=== PATIENT | male | born 1950 | race Caucasian/White ===

== ENCOUNTER 2021-08-12 11:26 | Emergency (ER) | payer MEDICARE, OTHER, SELFPAY ==
--- NOTE | ~2021-08-12 | XR_ITS ---
EXAMINATION: XR ANKLE, RIGHT CLINICAL INFORMATION: Swelling right ankle. COMPARISON: None TECHNIQUE: AP, lateral, and mortise views of the right ankle. FINDINGS: There is a moderate medial medial malleolar and mild lateral malleolar soft tissue swelling. The ankle mortise and subtalar joints are normal. No visible acute fracture or dislocation. There are small calcaneal heel and retrocalcaneal enthesophytes. XR/XR ankle RT 2V IMPRESSION: Small retrocalcaneal and calcaneal heel enthesophytes. No acute fracture or dislocation. There is bimalleolar soft tissue swelling
[2021-08-12 11:46] VITALS: BP 161/76; PULSE 52; RESP 16; TEMP 35.9; O2SAT 97; BMI 33.0
--- NOTE | 2021-08-12 12:23 | ED.EXTPRO ---
HPI - Extremity Problem General Chief complaint: Extremity Problem Stated complaint: r foot ankle pain Time Seen by Provider: 08/12/21 11:59 Source: patient Mode of arrival: ambulatory Limitations: no limitations History of Present Illness HPI Narrative: 71-year-old male with a history of coronary disease, hypertension, hyperlipidemia on aspirin 81 mg and Plavix 75 mg here with reports of 2 weeks of right ankle pain and swelling. Patient denies any injury or trauma. Patient tells me the pain is felt primarily on the medial aspect of the ankle and it is more painful at night time when he is trying to sleep. He feels like in the morning when he wakes up the ankle is stiff and then throughout the day it does get better. He reports there is some swelling associated with the pain. No warmth or redness or fevers or chills. No recent travel. No sick contacts. No history of blood clots or family history of same. He has been compliant with his aspirin and his Plavix. Related Data Previous Rx's Medication Instructions Recorded prednisone 20 mg tablet 40 mg PO DAILY #10 tab 08/12/21 Allergies Allergy/AdvReac Type Severity Reaction Status Date / Time No Known Allergies Allergy Verified 08/12/21 11:45 Review of Systems Review of Systems: Yes all other systems are reviewed and are negative Constitutional: Constitutional: Reports no additional constitutional complaints, Denies body ache(s), Denies chills, Denies fever(s), Denies headache(s) and Denies weakness Eyes: Eyes: Reports no additional eye complaints and Denies change in vision ENT: Reports system reviewed and no additional complaints, except as documented, Denies dizziness, Denies headache(s), Denies nasal congestion, Denies nasal discharge and Denies neck pain Cardiovascular: Cardiovascular: Reports no additional cardiovascular complaints, Denies chest pain, Denies leg edema and Denies dyspnea Respiratory: Respiratory: Reports no additional respiratory complaints, Denies cough and Denies dyspnea Gastrointestinal: Gastrointestinal: Reports no additional gastrointestinal complaints, Denies abdominal pain, Denies diarrhea, Denies nausea and Denies vomiting Genitourinary: Genitourinary: Denies urinary incontinence Musculoskeletal: Musculoskeletal: Reports no additional musculoskeletal complaints, Denies back pain, Reports arthralgias, Reports joint swelling, Denies neck pain, Denies numbness and Denies tingling Integumentary/Breasts: Skin/Breast: Reports system reviewed and no additional complaints, except as docu and Denies rash Neurologic: Reports system reviewed and no additional complaints, except as documented, Denies Abnormal speech present, Denies dizziness, Denies headache(s), Denies numbness, Denies tingling and Denies weakness PMFSH Past Medical History Attestation statement: The following information was validated with the patient. Source: old records reviewed and nursing notes reviewed Medical History HTN (hypertension) Hyperlipidemia Myocardial infarction Social History Social History Advance Directives: No Advance Directives Information Provided: Yes Physical Exam Vital Signs: Vital Signs: Last Vital Signs Temp 97.1 F 08/12/21 14:05 Pulse 50 08/12/21 14:05 Resp 16 08/12/21 14:05 BP 163/81 H 08/12/21 14:05 Pulse Ox 96 08/12/21 14:05 BMI result Body Mass Index 33.0 Const: General: cooperative, healthy appearing, comfortable and no acute distress Orientation/consciousness: patient oriented x3 Limitations: no limitations HEENT: Head: Yes normal to inspection Ears: hearing grossly normal bilaterally General nose exam: Normal external nose present Face and sinus: Yes normal facial exam Mouth: Normal oral and palatal mucosa present Throat: Yes posterior oropharynx normal Eyes: General: appearance normal, both eyes and all related structures Pupils: Equal, round and reactive pupils present Neck: Neck: Yes normal visual inspection Chest: Chest palpation & inspection: normal inspection of the chest Resp: Effort & Inspection: normal respiratory effort Auscultation: clear to auscultation bilaterally Cardio: Rate: regular rate Rhythm: regular rhythm Peripheral pulses: Peripheral pulses 2+ throughout GI: Inspection: Yes normal to inspection Palpation (GI): Soft to palpation and nontender Auscultation: normal bowel sounds Back/Spine/Pelvis: Thoracic/Lumbar Spine: thoracic and lumbar spine normal to inspection Skin: General skin exam: no rashes or lesions noted Neuro: General: patient oriented x3, no focal motor deficits and normal sensation to monofilament Cranial nerves: Yes Equal, round and reactive pupils present Cognition (Neuro): normal cognition Speech: No Abnormal speech present Gait exam (Neuro): Normal gait present Motor exam (neuro): 5/5 motor strength present throughout Extrem: Other: To the medial aspect there is some skin discoloration there is swelling noted around the ankle circumferentially with some tenderness with range of motion. Neurovascularly intact distally. Palpable pulses. No warmth or redness. No calf pain or swelling. Foot is normal. General: Yes normal to inspection Course Course Course Narrative: 71-year-old male here with atraumatic right ankle pain and swelling for the last 2 weeks. Will check x-rays, lab 1415-Labs show mildly increased inflammatory markers. Uric acid is negative. However an acute gout flare uric acid may be normal. X-ray show some arthritic changes. I discussed with the patient is may be a gout flare. He also has underlying arthritis which could be contributing to his pain and swelling. Less likely DVT with no calf pain or swelling or risk factors. Less likely cellulitis with no warmth or redness. Will treat with course of prednisone. Reviewed worrisome signs and symptoms of when to return to the emergency department. Comfortable discharge home. MDM - Extremity (Nontraumatic) Medical Records Attestation: I reviewed the patient's medical records. Lab Data Attestation: I reviewed the patient's lab results. Result diagrams: 08/12/21 12:29 08/12/21 12:29 Labs: Lab Results 08/12/21 08/12/21 08/12/21 Range/Units 12:29 12:29 12:29 WBC 6.3 (4.8-10.8) X10*3/uL RBC 4.61 (4.60-5.80) X10*6/uL Hgb 14.7 (14.0-18.0) g/dl Hct 44.7 (42.0-52.0) % MCV 97.0 (80.0-98.0) fL MCH 31.9 (27.0-33.0) pg MCHC 32.9 (31.0-36.0) g/dl RDW 12.9 (11.0-16.0) % Plt Count 175 (160-400) X10*3/uL MPV 8.8 L (9.4-12.4) fL Immature Gran % (Auto) 0.3 (0.0-0.4) % Neut % (Auto) 58.8 (45-73) % Lymph % (Auto) 24.5 (20-40) % [place] % (Auto) 12.0 H (2-11) % Eos % (Auto) 3.5 (0-4) % Baso % (Auto) 0.9 (0-2) % Lymph # (Auto) 1.6 (1.2-4.9) X10*3/uL [place] # (Auto) 0.8 (0.1-1.2) X10*3/uL Eos # (Auto) 0.2 (0.0-0.4) X10*3/uL Baso # (Auto) 0.1 (0.0-0.2) X10*3/uL Abs Immat Gran (auto) 0.02 (0.00-0.03) X10*3/uL Absolute Neuts (auto) 3.7 (2.0-8.3) x10*3/uL Absolute Nucleated RBC 0.000 (0.0-0.012) X10*3/uL Nucleated RBC % (auto) 0.0 (0.0-0.2) /100WBC ESR 5 (0-15) MM/HR Sodium 140 (135-145) mmol/L Potassium 4.7 (3.3-5.1) mmol/L Chloride 105 (96-108) mmol/L Carbon Dioxide 26 (22-29) mmol/L Anion Gap 14 (12-20) BUN 15 (9-16) mg/dL Creatinine 0.93 (0.5-1.4) mg/dL Estim Creat Clear Calc 86.8 Estimated GFR > 60 Random Glucose 96 (60-115) mg/dL Uric Acid 4.7 (3.4-7.0) mg/dL Calcium 9.6 (8.4-10.2) mg/dL C-Reactive Protein 0.69 H (< or = 0.50) mg/dL Imaging Data ankle xray: Attestation: I personally reviewed and interpreted this imaging study as follows: Radiologist's impression: [address] [address] XRay Report Signed Patient: Robert Gastelum MR#: [id number] : 1950 Acct:[id number] Age/Sex: 71 / M ADM Date: 08/12/21 Loc: [facility].ED Attending Dr: Ordering Physician: Jorge Wilkins MD Date of Service: 08/12/21 Procedure(s): XR ankle RT 2V Accession Number(s): [id number] cc: Jorge Wilkins MD~ EXAMINATION: XR ANKLE, RIGHT CLINICAL INFORMATION: Swelling right ankle.? COMPARISON: None? TECHNIQUE: AP, lateral, and mortise views of the right ankle. FINDINGS: There is a moderate medial medial malleolar and mild lateral malleolar soft tissue swelling. The ankle mortise and subtalar joints are normal. No visible acute fracture or dislocation. There are small calcaneal heel and retrocalcaneal enthesophytes.? XR/XR ankle RT 2V IMPRESSION: Small retrocalcaneal and calcaneal heel enthesophytes. ? No acute fracture or dislocation. ? There is bimalleolar soft tissue swelling Discharge Plan Discharge Clinical Impression: Gout Patient Disposition: Home, Self-Care Instructions: Low Purine Diet (ED), Gout (ED), Swollen Ankle Joint (ED) Additional Instructions: Your x-ray shows some arthritic changes Apply heat or ice Gentle stretching Follow-up with primary care in 1 week for persistent symptoms Prescriptions: New prednisone 20 mg tablet 40 mg PO DAILY Qty: 10 0RF Referrals: Cinda Cho MD [Primary Care Provider] - 1 week (for persistent symptoms. )
[2021-08-12 12:38] LABS: MANUAL DIFF FLAG NO
[2021-08-12 12:43] LABS: Basophils Absolute Auto 0.1 X10*3/uL (0.0-0.2); Basophils Percent Auto 0.9 % (0-2); Eosinophils Absolute Auto 0.2 X10*3/uL (0.0-0.4); Eosinophils Percent Auto 3.5 % (0-4); Hematocrit 44.7 % (42.0-52.0); Hemoglobin 14.7 g/dl (14.0-18.0); Imm Gran Abs Auto 0.02 X10*3/uL (0.00-0.03); Imm Gran Pct Auto 0.3 % (0.0-0.4); Lymphocytes Absolute Auto 1.6 X10*3/uL (1.2-4.9); Lymphocytes Percent Auto 24.5 % (20-40); Mean Corpuscular HGB Conc 32.9 g/dl (31.0-36.0); Mean Corpuscular Hemoglobin 31.9 pg (27.0-33.0); Mean Platelet Volume 8.8 fL (9.4-12.4); Monocytes Absolute Auto 0.8 X10*3/uL (0.1-1.2); Neutrophils Absolute Auto 3.7 x10*3/uL (2.0-8.3); Neutrophils Percent Auto 58.8 % (45-73); Platelet Count 175 X10*3/uL (160-400); Red Blood Count 4.61 X10*6/uL (4.60-5.80); Red Cell Distribution Width 12.9 % (11.0-16.0); White Blood Count 6.3 X10*3/uL (4.8-10.8)
[2021-08-12 12:58] LABS: Anion Gap 14 (12-20); Blood Urea Nitrogen 15 mg/dL (9-16); C Reactive Protein 0.69 mg/dL (< or = 0.50); Calcium 9.6 mg/dL (8.4-10.2); Carbon Dioxide 26 mmol/L (22-29); Chloride 105 mmol/L (96-108); Creatinine Clr Calc Pharmacy 86.8; Estimated Glomerular Filt Rate > 60; Glucose Random 96 mg/dL (60-115); Potassium 4.7 mmol/L (3.3-5.1); Sodium 140 mmol/L (135-145)
[2021-08-12 13:10] LABS: Uric Acid 4.7 mg/dL (3.4-7.0)
[2021-08-12 13:18] LABS: Erythrocyte Sedimentation Rate 5 MM/HR (0-15)
[2021-08-12 14:05] VITALS: BP 163/81; PULSE 50; RESP 16; TEMP 36.2; O2SAT 96
== END 2021-08-12 14:29 | disposition home or self-care (01) ==
PROVIDERS: Nurse Practitioner Family; Emergency Provider Emergency Medicine; PCP Internal Medicine
DX: M10.9 Gout, unspecified (principal); M25.571 Pain in right ankle and joints of right foot; I10 Essential (primary) hypertension; E78.5 Hyperlipidemia, unspecified; Z79.82 Long term (current) use of aspirin; Z79.02 Long term (current) use of antithrombotics/antiplatelets
CPT/HCPCS: 36415; 73600; 80048; 84550; 85025; 85652; 86140; 99283